=== PATIENT | male | born 1950 | race American Indian/Alaskan Native ===

== ENCOUNTER 2021-07-10 13:03 | Emergency (ER) | payer MEDICARE ==
[2021-07-10 13:16] VITALS: BP 142/97
[2021-07-10] MEDS ORDERED: TETANUS,DIPH,PERTUSS(ACELL) VACCINE 0.5 ML SYRINGE IM ONE (14:09)
--- NOTE | 2021-07-10 14:51 | XRay Report ---
RIGHT FINGER(S) 3 VIEW(S) INDICATION / CLINICAL INFORMATION: foreign body . Injury with nail gun to the right fourth finger. COMPARISON: None available. FINDINGS: BONES / JOINT(S): There is a nail in the distal aspect of the fourth finger which traverses the bone. No displaced osseous fragments are seen. Joint spaces are maintained. SOFT TISSUES: There is soft tissue swelling in the distal fourth finger. ADDITIONAL FINDINGS: None. IMPRESSION: 1. There is a nail in the distal fourth finger which appears to traverse the distal phalanx. Signer Name: Randall Marie MD Signed: 07/10/2021 2:47 PM Workstation Name: [id number]
--- NOTE | 2021-07-10 16:30 | Emergency Department Report ---
- General Chief complaint: Skin/Abscess/Foreign Body Stated complaint: NAIL IN FINGER Time Seen by Provider: 07/10/21 14:04 Source: patient Mode of arrival: Ambulatory Limitations: No Limitations - History of Present Illness Initial comments: This is a 70-year-old male nontoxic, well nourished in appearance, no acute signs of distress presents to the ED with c/o of nail foreign body to right ring finger. Patient stated that while he was at work and nail gun nail went into his finger. Patient denies decreased sensation or range of motion. Patient stated bleeding is under control. Denies any numbness, tingling, fever, chills, nausea, vomiting, chest pain, shortness of breath, headache or stiff neck. Patient denies any allergies to significant past medical history. Patient is that he is not up-to-date with tetanus. -: This afternoon Tetanus Up to Date: no Location: RUE Severity: mild Severity scale (0 -10): 8 Quality: aching Consistency: constant Improves with: none Worsens with: none Associated symptoms: denies other symptoms Treatments Prior to Arrival: none - Related Data Previous Rx's Medication Instructions Recorded Last Taken Type Sulfamethoxazole/Trimethoprim 1 each PO BID #14 tab 07/10/21 Unknown Rx [Bactrim DS TAB] Allergies Allergy/AdvReac Type Severity Reaction Status Date / Time Penicillins Allergy Rash Verified 07/10/21 13:11 Abscess Boil HPI - HPI Chief Complaint: Skin/Abscess/Foreign Body Stated Complaint: NAIL IN FINGER Time Seen by Provider: 07/10/21 14:04 Home Medications: Previous Rx's Medication Instructions Recorded Last Taken Type Sulfamethoxazole/Trimethoprim 1 each PO BID #14 tab 07/10/21 Unknown Rx [Bactrim DS TAB] Allergies/Adverse Reactions: Allergies Allergy/AdvReac Type Severity Reaction Status Date / Time Penicillins Allergy Rash Verified 07/10/21 13:11 ED Review of Systems ROS: Stated complaint: NAIL IN FINGER Other details as noted in HPI Comment: All other systems reviewed and negative Constitutional: denies: chills, fever Eyes: denies: eye pain, eye discharge, vision change ENT: denies: ear pain, throat pain Respiratory: denies: cough, shortness of breath, wheezing Cardiovascular: denies: chest pain, palpitations Endocrine: no symptoms reported Gastrointestinal: denies: abdominal pain, nausea, diarrhea Genitourinary: denies: urgency, dysuria Musculoskeletal: denies: back pain, joint swelling, arthralgia Skin: denies: rash, lesions Neurological: denies: headache, weakness, paresthesias Psychiatric: denies: anxiety, depression Hematological/Lymphatic: denies: easy bleeding, easy bruising ED Past Medical Hx - Past Medical History Previous Medical History?: No - Surgical History Past Surgical History?: No - Social History Smoking Status: Current Every Day Smoker Substance Use Type: Alcohol - Medications Home Medications: Home Medications Medication Instructions Recorded Confirmed Last Taken Type Sulfamethoxazole/Trimethoprim 1 each PO BID #14 tab 07/10/21 Unknown Rx [Bactrim DS TAB] ED Physical Exam - General Limitations: No Limitations General appearance: alert, in no apparent distress - Head Head exam: Present: atraumatic, normocephalic - Eye Eye exam: Present: normal appearance - Neck Neck exam: Present: full ROM - Respiratory Respiratory exam: Absent: respiratory distress - Cardiovascular Cardiovascular Exam: Present: regular rate - Extremities Exam Extremities exam: Present: full ROM, tenderness, normal capillary refill. Absent: joint swelling - Expanded Upper Extremity Exam Right Forearm Wrist exam: Present: normal inspection. Absent: full ROM, tenderness, swelling, abrasion, laceration, ecchymosis, deformity, crepidus, dislocation, erythema, tenderness over anatomical snuff box, pain with axial thumb loading Hand Wrist exam: Present: full ROM, tenderness. Absent: swelling, abrasion, laceration, ecchymosis, deformity, crepidus, dislocation, erythema, amputation, nail avulsion Hand L/R Back: 1 - silver about 0.1 cm thickness nail present here Vascular: Present: normal capillary refill. Absent: vascular compromise (Neurovascular within normal limits) - Back Exam Back exam: Present: full ROM - Neurological Exam Neurological exam: Present: alert, oriented X3, normal gait - Psychiatric Psychiatric exam: Present: normal affect, normal mood - Skin Skin exam: Present: warm, dry, intact, normal color. Absent: rash ED Course Vital Signs 07/10/21 13:11 Temperature 97.3 F L Pulse Rate 60 Respiratory 18 Rate Blood Pressure 142/97 [Left] O2 Sat by Pulse 100 Oximetry - Reevaluation(s) Reevaluation #1: 07/10/21 16:29 Patient is speaking in full sentences with no signs of distress noted. - Procedure Description Procedures done: Under sterile field, I used Betadine to clean the area. I then used 40 mL of normal saline to flush the area. I then used 2% lidocaine plain and injected 3 mL to the wound for digital block to right distal ring finger. I then used a straight hemostat and removed the foreign body object completely. I then applied a sterile 4 x 4 with tape. Minimal bleeding noted but is under control. Patient tolerated procedure well with no signs of distress. ED Medical Decision Making - Radiology Data [address] [address] XRay Report Signed Patient: BASIM GOLD MR#: [id number] : 1950 Acct:[id number] Age/Sex: 70 / M ADM Date: 07/10/21 Loc: ED Attending Dr: Ordering Physician: MILES WHITING NP Date of Service: 07/10/21 Procedure(s): XR finger(s) 2+V RT Accession Number(s): [id number] cc: MILES WHITING NP Fluoro Time In Minutes: RIGHT FINGER(S) 3 VIEW(S) INDICATION / CLINICAL INFORMATION: foreign body . Injury with nail gun to the right fourth finger. COMPARISON: None available. FINDINGS: BONES / JOINT(S): There is a nail in the distal aspect of the fourth finger which traverses the bone. No displaced osseous fragments are seen. Joint spaces are maintained. SOFT TISSUES: There is soft tissue swelling in the distal fourth finger. ADDITIONAL FINDINGS: None. IMPRESSION: 1. There is a nail in the distal fourth finger which appears to traverse the distal phalanx. Signer Name: Randall Marie MD Signed: 07/10/2021 2:47 PM Workstation Name: [id number] Transcribed By: Dictated By: Randall Marie MD Electronically Authenticated By: Randall Marie MD Signed Date/Time: 07/10/21 1447 DD/ 1439 TD/TT: [address] [place] [address] XRay Report Signed Patient: BASIM GOLD MR#: [id number] : 1950 Acct:[id number] Age/Sex: 70 / M ADM Date: 07/10/21 Loc: ED Attending Dr: Ordering Physician: MILES WHITING NP Date of Service: 07/10/21 Procedure(s): XR finger(s) 2+V RT Accession Number(s): [id number] cc: MILES WHITING NP Fluoro Time In Minutes: XR finger(s) 2+V RT INDICATION: repeat s/p foreign body removal. COMPARISON: Exam noted today FINDINGS: Foreign body has been removed from the ring finger. There is no appreciable fracture. Signer Name: Vick Walker MD Signed: 07/10/2021 4:41 PM Workstation Name: [id number] Transcribed By: JOON Dictated By: Vick Walker MD Electronically Authenticated By: Vick Walker MD Signed Date/Time: 07/10/21 1641 DD/ 1640 TD/TT: - Medical Decision Making This is a 70-year-old male that presents with foreign body. Patient is stable and was examined by me. The procdure has been performed and patient tolerated well. Nail has been completly removed. Repeat xrays confirms. A sterile dressing has been applied. Patient was educated on proper wound care. Patient is discharged with Bactrim. Patient was instructed to refer to Follow-up with a orthopedic doctor in 3-5 days or if symptoms worsen and continue return to emergency room as soon as possible. At time of discharge, the patient does not seem toxic or ill in appearance. No acute signs of distress noted. Patient agrees to discharge treatment plan of care. No further questions noted by the patient. Critical care attestation.: If time is entered above; I have spent that time in minutes in the direct care of this critically ill patient, excluding procedure time. ED Disposition Clinical Impression: Foreign body of finger of right hand Qualifiers: Encounter type: initial encounter Qualified Code(s): S60.459A - Superficial foreign body of unspecified finger, initial encounter Disposition: HOME / SELF CARE / HOMELESS Is pt being admited?: No Does the pt Need Aspirin: No Condition: Stable Instructions: Hand or Foot Foreign Body, Adult Additional Instructions: Follow-up with a orthopedic doctor in 3-5 days or if symptoms worsen and continue return to emergency room as soon as possible. Prescriptions: Sulfamethoxazole/Trimethoprim [Bactrim DS TAB] 1 each PO BID #14 tab Referrals: PRIMARY CARE, [Referring] - 3-5 Days GARRETT ROSAS MD [Staff Physician] - 3-5 Days Time of Disposition: 16:57
--- NOTE | 2021-07-10 16:45 | XRay Report ---
XR finger(s) 2+V RT INDICATION: repeat s/p foreign body removal. COMPARISON: Exam noted today FINDINGS: Foreign body has been removed from the ring finger. There is no appreciable fracture. Signer Name: Vick Walekr MD Signed: 07/10/2021 4:41 PM Workstation Name: [id number]
== END 2021-07-10 17:27 | disposition home or self-care (01) ==
LOC: ED 13:03
DX: S60.551A Superficial foreign body of right hand, initial encounter (principal); Z88.0 Allergy status to penicillin; X58.XXXA Exposure to other specified factors, initial encounter; Y93.89 Activity, other specified; Y92.89 Other specified places as the place of occurrence of the external cause; Y99.8 Other external cause status
CPT/HCPCS: 90471; 90715; 99283